=== PATIENT | female | born 1955 | race Caucasian/White ===

== ENCOUNTER → 2017-10-05 | Outpatient (CLI) | payer BC ==
[~2017-10-05] MED LIST: BENICAR40 MG PO; BIOTIN1 MG PO; CELEBREX200 MG PO; DIOVAN HCT 1601 EACH PO; DIOVAN160 MG PO; METHADONE HCL40 MG PO
== END ==
LOC: MAMMO 11:03
PROVIDERS: ATTEND Family Medicine
DX: Z12.31 Encounter for screening mammogram for malignant neoplasm of breast (principal)
CPT/HCPCS: 77067

== ENCOUNTER → 2018-03-14 | Outpatient (CLI) | payer BC ==
--- NOTE | 2018-03-14 16:21 | Diagnostic Imaging Report ---
#[id number] - USBRECOMLT ULTRASOUND OF THE LEFT BREAST : 03/14/2018 Comparison is made to exams dated: 10/05/2017 mammogram, 10/06/2016 mammogram and 09/26/2016 mammogram - [facility]. Color flow and real-time ultrasound were performed on the entire left breast with scanning in all four quadrants, retroareolar region and the left axilla. -At 9 o'clock 5 cm from the nipple there is a 9 x 6 x 6 mm indeterminate cyst with debris or solid component. This should be followed with a study in 6 months. -At 2 o'clock 2cm from the nipple there is a septated cyst measuring 7 x 4 x 10 mm -Multiple benign appearing cysts are also noted with a cluster at 12 o'clock 2 cm from the nipple, 3 o'clock 4 cm from the nipple measuring 7 x 4 x 7 mm, 6 o'clock 1 cm from the nipple measuring 7 x 5 x 7 mm with calcification and 9 o'clock 4 cm from the nipple measuring 14 x 5 x 7 mm. -A cluster of cysts at 10 o'clock with composite measurement of 1.2 x 0.5 x 0.8 cm. IMPRESSION: PROBABLY BENIGN - FOLLOW-UP RECOMMENDED A follow-up ultrasound in 6 months is recommended to demonstrate stability. The patient was notified of the need for followup. Gurpreet Paniagua Jr., D.O. cw/:03/14/2018 13:37:58 Religious Education Director: GERARD MILAN, [facility] letter sent: Followup Recommended Ultrasound BI-RADS: 3 Probably benign
== END ==
LOC: US 09:03
PROVIDERS: ATTEND Obstetrics & Gynecology
DX: N63.20 Unspecified lump in the left breast, unspecified quadrant (principal)

== ENCOUNTER → 2018-10-10 | Outpatient (CLI) | payer BC ==
--- NOTE | 2018-10-11 08:57 | Diagnostic Imaging Report ---
#[id number] - USBRELIMLT ULTRASOUND OF THE LEFT BREAST - SHORT-TERM FOLLOW-UP: 10/10/2018 Comparison is made to exams dated: 03/14/2018 ultrasound and 10/05/2017 mammogram - [facility]. Focused color flow and real-time ultrasound were performed on the left breast at the 9 o'clock position. At 9 o'clock 5 cm from the nipple there is a cyst with echogenic debris now measuring 8 x 5 x 6 mm (previously measured 9 x 6 x 6 mm). Multiple additional cysts are noted. IMPRESSION: BENIGN There is no sonographic evidence of malignancy. A 1 year screening mammogram is recommended. Gurpreet Paniagua Jr., D.O. cw/:10/10/2018 16:41:08 Street Sweeper Operator: RANDALL RIOJAS RDMS, [facility] letter sent: Normal Exam Ultrasound BI-RADS: 2 Benign
== END ==
LOC: US 08:26
PROVIDERS: ATTEND Obstetrics & Gynecology
DX: N64.59 Other signs and symptoms in breast (principal)

== ENCOUNTER 2018-11-04 15:38 | Emergency (ER) | payer BC ==
[~2018-11-04] VITALS: Ht 322.6 cm; Wt 97.5 kg
--- OUTSIDE RECORDS SUMMARY | 2018-11-04 15:42 | XMS REPORT ---
[facility] Address Unknown Phone Unavailable Care Team Providers Care Qa Automation Engineer Name Role Phone KOLTON GRAY Unavailable Unavailable ANJELICA WORRELL Unavailable Unavailable DAVID MCKEON Unavailable Unavailable REYES, SOUHEJULIO Unavailable Unavailable Problems This patient has no known problems. Allergies, Adverse Reactions, Alerts This patient has no known allergies or adverse reactions. Medications This patient has no known medications. Results Test Description Test Time Test Comments Text Results Atomic Results Result Comments US BREAST LIMITED LEFT 2018-10-10 16:02:00 [place] [address] Patient Name: KATHY MURO MR #: [id number] : 1955 Age/Sex: 63/F Req #: [id number] Adm Physician: Ordered by: KOLTON GRAY MD Report #: [id number] Location: Room/Bed: Procedure: [id number] US/US BREAST LIMITED LEFT Exam Date: Exam Time: REPORT STATUS: Signed #[id number] - USBRELIMLT ULTRASOUND OF THE LEFT BREAST - [facility] RT-TERM FOLLOW-UP: 10/10/2018 Comparison is made to exams dated: 03/14/2018 ultrasound and 10/05/2017 mammogram - [facility]. Focused color flow and real-time ultrasound were performed on the left breast at the 9 o'clock position. At 9 o'clock 5 cm from the nipple there is a cyst with echogenic debris now measuring 8 x 5 x 6 mm (previously measured 9 x 6 x 6 mm). Multiple additional cysts are noted. IMPRESSION: BENIGN There is no sonographic evidence of malignancy. A 1 year screening mammogram is recommended. Gurpreet Paniagua Jr., D.O. cw/:10/10/2018 16:41:08 Dixonac Operator: RANDALL RIOJAS [facility], [facility] letter sent: Normal Exam Ultrasound BI-RADS: 2 Benign Dictated By: GURPREET PANIAGUA DO 40 Transcribed By: ALISON on 10/10/181640 COPY TO: KOLTON GRAY MD US BREAST COMPLETE LEFT 2018-03-14 12:01:00 [place] [address] Patient Name: KATHY MURO MR #: [id number] : 1955 Age/Sex: 62/F Req #: [id number] [facility] Physician: Ordered by: CARLYLE WORRELL MD Report #: [id number] Location: Room/Bed: Procedure: [id number] US/US BREAST COMPLETE LEFT Exam Date: 03/14/18 Exam Time: 1057 REPORT STATUS: Signed #[id number] - USBRECOMLT ULTRASOUND OF THE LEFT BREAST : 03/14/2018 Comparison is made to exams dated: 10/05/2017 mammogram, 10/06/2016 mammogram and 09/26/2016 mammogram - [facility]. Color flow and real-time ultrasound were performed on the entire left breast with scanning in all four quadrants, retroareolar region and the left axilla. -At 9 o'clock 5 cm from the nipple there is a 9 x 6 x 6 mm indeterminate cyst with debris or solid component. This should be followed with a study in 6 months. -At 2 o'clock 2cm from the nipple there is a septated cyst measuring 7 x 4 x 10 mm -Multiple benign appearing cysts are also noted with a cluster at 12 o'clock 2 cm from the nipple, 3 o'clock 4 cm from the nipple measuring 7 x 4 x 7 mm, 6 o'clock 1 cm from the nipple measuring 7 x 5 x 7 mm with calcification and 9 o'clock 4 cm from the nipple measuring 14 x 5 x 7 mm. -A cluster of cysts at 10 o'clock with composite measurement of 1.2 x 0.5 x 0.8 cm. IMPRESSION: PROBABLY BENIGN - FOLLOW-UP RECOMMENDED A follow-up ultrasound in 6 months is recommended to demonstrate stability. The patient was notified of the need for followup. Gurpreet Paniagua Jr., D.O. cw/:03/14/2018 13:37:58 Dixonac Operator: GERARD MILAN [facility] letter sent: Followup Recommended Ultrasound BI- RADS: 3 Probably benign Dictated By: GURPREET PANIAGUA DO 36 Transcribed By: ALISON on 03/14/181336 COPY TO: ANJELICA WORRELL MD MAMMOGRAPHY DIGITAL SCR [place] [address] Patient Name: KATHY MURO MR #: [id number] : 1955 Age/Sex: 62/F Req #: [id number] [facility] Physician: Ordered by: MCKEON ANDREW DO Report #: [id number] Location: MAMMO Room/Bed: Procedure: [id number] MG/MAMMOGRAPHY DIGITAL SCR BILAT Exam Date: 10/05/17 Exam Time: 1100 REPORT STATUS: Signed #[id number] - MGSCRBIL #BILATERAL DIGITAL SCREENING MAMMOGRAM WITH CAD: 10/05/2017 CLINICAL: Routine screening. Comparison is made to exams dated: 10/06/2016 mammogram, 09/26/2016 mammogram, 09/14/2014 mammogram and 02/06/2013 mammogram - [facility]. Current study contains 4 films. The tissue of both breasts is heterogeneously dense. This may lower the sensitivity of mammography. Current study was also evaluated with a Computer Aided Detection (CAD) system. There are benign calcifications in both breasts. There is vascular calcification in both breasts. No significant masses, calcifications, or other findings are seen in either breast. There has been no significant interval change. IMPRESSION: BENIGN There is no mammographic evidence of malignancy. A 1 year screening mammogram is recommended. The patient will be notified by letter of the results. Gurpreet Paniagua Jr., D.O. cw/:10/24/2017 10:50:20 Dixonac Operator: Geovanna DAVIS(R)(M), [facility] letter sent: Compared to Prior B9 Mammogram BI-RADS: 2 Benign Dictated By: GURPREET PANIAGUA DO 1050 Transcribed By: ALISON on 10/24/17 1050 COPY TO: DAVID MCKEON DO MRA NECK [place] [address] Patient Name: KATHY MURO MR #: [id number] : 1955 Age/Sex: 61/F Req #: [id number] Adm Physician: AJ REYES MD Ordered by: PHIL WATKINS MD Report #: [id number] Location: MED/SURG Room/Bed: [facility] Procedure: [id number] MRI/MRA NECK WO Exam Date: Exam Time: REPORT STATUS: Signed History: Headache, dizziness, sudden onset vertigo. Comparison studies: CT brain from 03/20/2017, MRI brain from 01/11/2017. Technique: Sagittal T2; axial T1, DWI, T2, GRE, axial and coronal T2 FLAIR. 2-D cervical and 3-D intracranial [id number]-ds-letlks MRA's . MRA images were obtained of the brain without contrast. MIP images of the arteries were isolated into anterior-posterior groups. The source images, reformatted axial and coronal images, and site safety representative projections of the MIP images through 180 degrees of rotation and tumbling were reviewed. Images were obtained of the neck without contrast. MIP images of the arteries were isolated into right-left groups. The source images and site safety representative projections of the MIP images through 180 degrees of rotation were reviewed. Intravenous contrast: None Findings: Brain: Scalp: No abnormal signal. No masses. Bone marrow: Normal in signal intensity. Brain sulci: Mildly prominent . Ventricles: Normal in size . No hydrocephalus. Parenchyma: Nonspecific few, punctate periventricular and deep white matter T2/FLAIR hyperintensity are likely related to small vessel ischemic changes. No masses, hemorrhage, acute or chronic vascular insults. Suprasellar region: No abnormalities. Craniocervical junction: No abnormalities. The foramen magnum is patent. No Chiari malformations. Vessels: Normal flow-voids in the arteries and sinuses. Incidental finding: C3-C4: Posterior disc osteophyte complex and ligamentum flavum thickening results in mild canal stenosis. C4-C5: Posterior disc osteophyte complex and thickened ligamentum flavum results in moderate canal stenosis (partially visualized and T2 sagittal images only). Cervical MRA: Suboptimal evaluation due to motion artifacts. If carotid bulb stenosis is present, stenosis is measured with respect to the distal extracranial internal carotid artery. Carotid arteries: Patent, no abnormality Vertebral arteries: Patent, no abnormality Intracranial MRA: The distal internal carotid, distal vertebral, basilar, and cerebral arteries are patent. No significant stenosis, occlusion, aneurysm, or arteriovenous malformation is seen. Anatomical variants: Anterior communicating artery: Not well visualized Posterior communicating arteries: Patent on left, not visualized on right. Vertebral arteries:Codominant IMPRESSION: Brain: 1. No acute intracranial abnormality. No change since MRI brain from 01/11/2017. 2. Minimal supratentorial white matter microvascular ischemic changes. MRA of the head and neck: No vascular abnormality. Signed by: Dr. Barbara Colmenares M.D. on 03/20/2017 10:07 PM Dictated By: BARBARA COLMENARES MD 06 Transcribed By: MATILDE on 03/20/172206 COPY TO: PHIL WATKINS MD MRA HEAD WO [place] [address] Patient Name: KATHY MURO MR #: [id number] : 1955 Age/Sex: 61/F Req #: [id number] Adm Physician: AJ REYES MD Ordered by: PHIL WATKINS MD Report #: [id number] Location: MED/SURG Room/Bed: [facility] Procedure: [id number] MRI/MRA HEAD WO Exam Date: Exam Time: REPORT STATUS: Signed History: Headache, dizziness, sudden onset vertigo. Comparison studies: CT brain from 03/20/2017, MRI brain from 01/11/2017. Technique: Sagittal T2; axial T1, DWI, T2, GRE, axial and coronal T2 FLAIR. 2-D cervical and 3-D intracranial jpxa-wl-tcmxep MRA's . MRA images were obtained of the brain without contrast. MIP images of the arteries were isolated into anterior-posterior groups. The source images, reformatted axial and coronal images, and site safety representative projections of the MIP images through 180 degrees of rotation and tumbling were reviewed. Images were obtained of the neck without contrast. MIP images of the arteries were isolated into right-left groups. The source images and site safety representative projections of the MIP images through 180 degrees of rotation were reviewed. Intravenous contrast: None Findings: Brain: Scalp: No abnormal signal. No masses. Bone marrow: Normal in signal intensity. Brain sulci: Mildly prominent . Ventricles: Normal in size . No hydrocephalus. Parenchyma: Nonspecific few, punctate periventricular and deep white matter T2/FLAIR hyperintensity are likely related to small vessel ischemic changes. No masses, hemorrhage, acute or chronic vascular insults. Suprasellar region: No abnormalities. Craniocervical junction: No abnormalities. The foramen magnum is patent. No Chiari malformations. Vessels: Normal flow-voids in the arteries and sinuses. Incidental finding: C3-C4: Posterior disc osteophyte complex and ligamentum flavum thickening results in mild canal stenosis. C4-C5: Posterior disc osteophyte complex and thickened ligamentum flavum results in moderate canal stenosis (partially visualized and T2 sagittal images only). Cervical MRA: Suboptimal evaluation due to motion artifacts. If carotid bulb stenosis is present, stenosis is measured with respect to the distal extracranial internal carotid artery. Carotid arteries: Patent, no abnormality Vertebral arteries: Patent, no abnormality Intracranial MRA: The distal internal carotid, distal vertebral, basilar, and cerebral arteries are patent. No significant stenosis, occlusion, aneurysm, or arteriovenous malformation is seen. Anatomical variants: Anterior communicating artery: Not well visualized Posterior communicating arteries: Patent on left, not visualized on right. Vertebral arteries:Codominant IMPRESSION: Brain: 1. No acute intracranial abnormality. No change since MRI brain from 01/11/2017. 2. Minimal supratentorial white matter microvascular ischemic changes. MRA of the head and neck: No vascular abnormality. Signed by: Dr. Barbara Colmenares M.D. on 03/20/2017 10:07 PM Dictated By: BARBARA COLMENARES MD 06 Transcribed By: MATILDE on 03/20/172206 COPY TO: PHIL WATKINS MD MRI BRAIN WO [place] [address] Patient Name: KATHY MURO MR #: [id number] : 1955 Age/Sex: 61/F Req #: [id number] Adm Physician: AJ REYES MD Ordered by: PHIL WATKINS MD Report #: [id number] Location: MED/SURG Room/Bed: [facility] Procedure: [id number] MRI/MRI BRAIN WO Exam Date: Exam Time: REPORT STATUS: Signed History: Headache, dizziness, sudden onset vertigo. Comparison studies: CT brain from 03/20/2017, MRI brain from 01/11/2017. Technique: Sagittal T2; axial T1, DWI, T2, GRE, axial and coronal T2 FLAIR. 2-D cervical and 3-D intracranial [id number]-uc-nkrbak MRA's . MRA images were obtained of the brain without contrast. MIP images of the arteries were isolated into anterior-posterior groups. The source images, reformatted axial and coronal images, and site safety representative projections of the MIP images through 180 degrees of rotation and tumbling were reviewed. Images were obtained of the neck without contrast. MIP images of the arteries were isolated into right-left groups. The source images and site safety representative projections of the MIP images through 180 degrees of rotation were reviewed. Intravenous contra st: None Findings: Brain: Scalp: No abnormal signal. No masses. Bone marrow: Normal in signal intensity. Brain sulci: Mildly prominent . Ventricles: Normal in size . No hydrocephalus. Parenchyma: Nonspecific few, punctate periventricular and deep white matter T2/FLAIR hyperintensity are likely related to small vessel ischemic changes. No masses, hemorrhage, acute or chronic vascular insults. Suprasellar region: No abnormalities. Craniocervical junction: No abnormalities. The foramen magnum is patent. No Chiari malformations. Vessels: Normal flow-voids in the arteries and sinuses. Incidental finding: C3-C4: Posterior disc osteophyte complex and ligamentum flavum thickening results in mild canal stenosis. C4-C5: Posterior disc osteophyte complex and thickened ligamentum flavum results in moderate canal stenosis (partially visualized and T2 sagittal images only). Cervical MRA: Suboptimal evaluation due to motion artifacts. If carotid bulb stenosis is present, stenosis is measured with respect to the distal extracranial internal carotid artery. Carotid arteries: Patent, no abnormality Vertebral arteries: Patent, no abnormality Intracranial MRA: The distal internal carotid, distal vertebral, basilar, and cerebral arteries are patent. No significant stenosis, occlusion, aneurysm, or arteriovenous malformation is seen. Anatomical variants: Anterior communicating artery: Not well visualized Posterior communicating arteries: Patent on left, not visualized on right. Vertebral arteries:Codominant IMPRESSION: Brain: 1. No acute intracranial abnormality. No change since MRI brain from 01/11/2017. 2. Minimal supratentorial white matter microvascular ischemic changes. MRA of the head and neck: No vascular abnormality. Signed by: Dr. Barbara Colmenares M.D. on 03/20/2017 10:07 PM Dictated By: BARBARA COLMENARES MD 06 Transcribed By: MATILDE on 03/20/172206 COPY TO: PHIL WATKINS MD CT BRAIN WO [place] [address] Patient Name: KATHY MURO MR #: [id number] : 1955 Age/Sex: 61/F Req #: [id number] Adm Physician: Ordered by: PHIL WATKINS MD Report #: [id number] Location: Room/Bed: Procedure: [id number] CT/CT BRAIN WO Exam Date: 03/20/17 Exam Time: 1745 REPORT STATUS: Signed Examination: CT BRAIN WITHOUT CONTRAST History:Possible stroke. Comparison studies:Brain MRI performed January 11, 2017. Head CT performed March 24, 2013 Technique: Axial images were obtained from the skull base to the vertex. Coronal and sagittal images reconstructed from the axial data. Intravenous contrast: None Findings: Scalp: No abnormalities. Bones: No fractures, blastic or lytic lesions. Brain sulci: Appropriate for age. Ventricles: Normal in size and configuration. No hydrocephalus. Extra-axial space: No abnormalities. Parenchyma: No masses, hemorrhage, or acute or chronic vascular insults. Sellar/suprasellar region: No abnormalities. Craniocervical junction: Patent foramen magnum. No Chiari one malformation. Incidental findings: None. Impression: No new or acute intracranial abnormalities. No change from recent MRI performed January 11, 2017 when accounting for differences in technique. Signed by: Dr. Galdino Clemente M.D. on 03/20/2017 6:19 PM Dictated By: GALDINO LU MD 18 Transcribed By: MATILDE on 03/20/171818 COPY TO: PHIL WATKINS MD [facility] [place] [address] Patient Name: KATHY MURO MR #: [id number] : 1955 Age/Sex: 61/F Req #: [id number] Adm Physician: Ordered by: PHIL WATKINS MD Report #: [id number] Location: Room/Bed: Procedure: [id number] DX/CHEST SINGLE (PORTABLE) Exam Date: 03/20/17 Exam Time: 1647 REPORT STATUS: Signed PROCEDURE: CHEST SINGLE (PORTABLE) COMPARISON: 09/12/2013. INDICATIONS: DIZZINESS FINDINGS: LUNGS: No consolidations or edema. PLEURA: No effusions or pneumothorax. HEART T MEDIASTINUM: The heart is within normal size-limits. Probable hiatal hernia, unchanged. BONES T SOFT TISSUES: No acute findings. CONCLUSION: No acute thoracic abnormality. Dictated by: Ronn Weston M.D. on 03/20/2017 at 17:12 Electronically approved by: Ronn Weston M.D. on 03/20/2017 at 17:12 Dictated By: RONN WESTON MD 11 Transcribed By: DANIEL on 03/20/171711 COPY TO: PHIL WATKINS MD
== END 2018-11-04 16:37 | disposition home or self-care (01) ==
LOC: ER 15:38 → FSED 16:37
DX: R31.9 Hematuria, unspecified (principal); N39.0 Urinary tract infection, site not specified
CPT/HCPCS: 81003; 99283

== ENCOUNTER → 2019-10-22 | Outpatient (CLI) | payer BC ==
--- NOTE | 2019-10-31 18:12 | Diagnostic Imaging Report ---
#[id number] - MGSCRBIL #BILATERAL DIGITAL SCREENING MAMMOGRAM WITH CAD: 10/22/2019 CLINICAL: Routine screening. Comparison is made to exams dated: 10/05/2017 mammogram, 10/06/2016 mammogram and 09/26/2016 mammogram - [facility]. The tissue of both breasts is heterogeneously dense. This may lower the sensitivity of mammography. Current study was also evaluated with a Computer Aided Detection (CAD) system. There are benign calcifications in both breasts. There also are benign lymph nodes in both breasts. Additionally there are benign vascular calcifications in the left breast. No significant masses, calcifications, or other findings are seen in either breast. There has been no significant interval change. IMPRESSION: BENIGN There is no mammographic evidence of malignancy. A 1 year screening mammogram is recommended. The patient will be notified by letter of the results. STELLA oneil/nadine:10/31/2019 12:14:36 Assurance Auditor: Geovanna DAVIS(Jam)([place]), [facility] letter sent: Compared to Prior B9 Mammogram BI-RADS: 2 Benign
== END ==
LOC: MAMMO 10:42
PROVIDERS: ATTEND Family Medicine
DX: Z12.31 Encounter for screening mammogram for malignant neoplasm of breast (principal)
CPT/HCPCS: 77067

== ENCOUNTER → 2020-02-04 | Outpatient (CLI) | payer BC ==
--- NOTE | 2020-02-05 08:50 | Diagnostic Imaging Report ---
#[id number] - USBRELIMLT ULTRASOUND OF THE LEFT BREAST : 02/04/2020 Comparison is made to exams dated: 02/04/2020 mammogram, 10/22/2019 mammogram, 10/10/2018 ultrasound and 03/14/2018 ultrasound - [facility]. Color flow and real-time ultrasound were performed on the left breast. Osuna scale images of the real-time examination were reviewed. There is a 1.3 cm irregular mass with a spiculated margin in the left breast at 6 o'clock. This irregular mass displays posterior acoustic shadowing. This correlates with mammography findings. There is associated architectural distortion. IMPRESSION: SUSPICIOUS OF MALIGNANCY - FOLLOW-UP RECOMMENDED The 1.3 cm irregular mass in the left breast is suspicious of malignancy. An ultrasound guided biopsy is recommended. A phone call was made to the physician's office. The patient has been or will be contacted. STELLA FRANCIS M.D. kw/:02/04/2020 14:32:18 Insulation Installer: RANDALL RIOJAS RUST, [facility] letter sent: Biopsy Required Ultrasound BI-RADS: 4 Suspicious abnormality
--- NOTE | 2020-02-05 08:50 | Diagnostic Imaging Report ---
#[id number] - MGDXLT #UNILATERAL LEFT DIGITAL DIAGNOSTIC MAMMOGRAM WITH CAD: 02/04/2020 CLINICAL: Palpable lump left breast. Comparison is made to exams dated: 10/22/2019 mammogram, 10/10/2018 ultrasound, 03/14/2018 ultrasound, 10/05/2017 mammogram, 10/06/2016 mammogram and 09/26/2016 mammogram - [facility]. The tissue of the left breast is heterogeneously dense. This may lower the sensitivity of mammography. Current study was also evaluated with a Computer Aided Detection (CAD) system. There is an area of subtle architectural distortion in the left breast at 6 o'clock anterior depth in the region of the patient's palpable abnormality. No other significant masses or calcifications are seen in the breast. IMPRESSION: INCOMPLETE: NEEDS ADDITIONAL IMAGING EVALUATION Area of subtle architectural distortion in the left breast at 6 o'clock anterior depth in the region of the patient's palpable abnormality is indeterminate. Further evaluation with ultrasound is required which will be performed during the same visit. STELLA FRANCIS M.D. kw/:02/04/2020 14:28:39 Auto Suspension And Steering Mechanic: Geovanna CRUZ)(M), [facility] Mammogram BI-RADS: 0 Indeterminate
== END ==
LOC: MAMMO 09:41
PROVIDERS: ATTEND Obstetrics & Gynecology
DX: N63.20 Unspecified lump in the left breast, unspecified quadrant (principal); N64.4 Mastodynia

== ENCOUNTER → 2020-02-13 | Outpatient (CLI) | payer BC ==
[~2020-02-13] MED LIST changes: +LIDOCAINE HCL 1% LOCAL INJ 20 ML VIAL ONE
== END ==
LOC: US 05:47
PROVIDERS: ATTEND Obstetrics & Gynecology
DX: N63.20 Unspecified lump in the left breast, unspecified quadrant (principal)
CPT/HCPCS: 19083; 77065; 88305; 88342; J2001; A4648

== ENCOUNTER → 2021-03-11 | Outpatient (CLI) | payer OTHER ==
[~2021-03-11] MED LIST changes: -LIDOCAINE HCL 1% LOCAL INJ 20 ML VIAL ONE
== END ==
LOC: VACCPMC 08:50
DX: Z23 Encounter for immunization (principal); Z20.822 Contact with and (suspected) exposure to COVID-19

== ENCOUNTER → 2021-04-07 | Outpatient (CLI) | payer OTHER | LOC: VACCPMC 07:59 | DX: Z23 Encounter for immunization (principal); Z20.822 Contact with and (suspected) exposure to COVID-19 ==

== ENCOUNTER 2021-11-30 11:44 | Observation (INO) | payer BC, MEDICARE, OTHER ==
[~2021-11-30] VITALS: Ht 167.6 cm; Wt 97.5 kg
[2021-11-30 12:29] LABS: BASOPHILS % 0.4 % (0.0-1.0); EOSINOPHILS # (AUTO) 0.1 (0.0-0.4); HEMATOCRIT 38.4 % (34.2-44.1); HEMOGLOBIN 12.5 g/dL (12.0-16.0); LYMPHOCYTES # (AUTO) 1.2 (1.0-3.2); MEAN CORPUSCULAR HEMOGLOBIN 31.3 pg (28-32); MEAN CORPUSCULAR HGB CONC 32.6 g/dL (31-35); MEAN CORPUSCULAR VOLUME 96.2 fL (81-99); MONOCYTES # (AUTO) 0.5 (0.2-0.8); MONOCYTES % 8.6 % (4.4-11.3); NEUTROPHILS # (AUTO) 3.7 (2.1-6.9); NEUTROPHILS % 66.6 % (38.7-80.0); PLATELET COUNT 169 x10e3/uL (140-360); RED BLOOD COUNT 3.99 x10e6/uL (3.6-5.1); RED CELL DISTRIBUTION WIDTH 12.7 % (11.7-14.4)
[2021-11-30 12:47] LABS: ALBUMIN 3.4 g/dL (3.5-5.0); ALBUMIN/GLOBULIN RATIO 0.9 (0.8-2.0); ANION GAP 10.5 mmol/L (8-16); CALCIUM 9.2 mg/dL (8.4-10.2); CREATININE, SERUM 0.83 mg/dL (0.57-1.11); POTASSIUM 4.5 mmol/L (3.5-5.1)
[2021-11-30 12:57] LABS: LIPASE 19 U/L (8-78)
[2021-11-30] MEDS ORDERED: NITROGLYCERIN 0.4 MG SUBL SL PRN (13:30)
[2021-11-30] MEDS ORDERED: ONDANSETRON HCL INJ 2MG/ML 2ML 2 MG/ML VIAL IV PRN (13:30)
[2021-11-30] MEDS ORDERED: Morphine 2mg Syringe 2 MG/ML SYR IV PRN (13:30)
[2021-11-30 16:13] LABS: INR 0.89; PARTIAL THROMBOPLASTIN TIME 27.3 seconds (23.8-35.5); PROTHROMBIN TIME 12.9 seconds (11.9-14.5)
[2021-11-30 16:21] LABS: CREATINE KINASE 117 IU/L (29-168)
[2021-11-30] MEDS ORDERED: IOPAMIDOL 370 MG/ML 100 ML INFUS..BTL INJ ONE (19:04)
[2021-12-01] MEDS ORDERED: ASPIRIN 325 MG TAB EC PO SCH (09:00)
== END 2021-11-30 18:56 | disposition left against medical advice (07) ==
LOC: ER 11:50 → ERHOLD 13:25
DX: R07.9 Chest pain, unspecified (principal); I10 Essential (primary) hypertension; Z85.3 Personal history of malignant neoplasm of breast; Z90.13 Acquired absence of bilateral breasts and nipples; Z20.822 Contact with and (suspected) exposure to COVID-19
CPT/HCPCS: 36415; 71045; 80053; 82550; 82553; 83690; 84484; 85025; 85379; 85610; 85730; 93005; 94799; 99284; G0378; Q9967; U0002

== ENCOUNTER → 2022-08-14 | Outpatient (CLI) | payer BC | LOC: US 08:37 | PROVIDERS: ATTEND Urology | DX: R31.21 Asymptomatic microscopic hematuria (principal) | CPT/HCPCS: 74018; 76770 ==

== ENCOUNTER → 2024-06-04 | Outpatient (REF) | payer BC | LOC: DX 10:43 | PROVIDERS: ATTEND Obstetrics & Gynecology | DX: Z13.820 Encounter for screening for osteoporosis (principal) | CPT/HCPCS: 77080 ==

== ENCOUNTER → 2025-01-27 | Outpatient (REF) | payer MEDICARE | LOC: US 12:52 | PROVIDERS: ATTEND Family Medicine | DX: R22.1 Localized swelling, mass and lump, neck (principal) | CPT/HCPCS: 76536 ==